=== PATIENT | male | born 1970 | race Caucasian/White ===

== ENCOUNTER 2021-09-08 19:03 | Emergency (ER) | payer OTHER ==
[2021-09-08] MEDS ORDERED: CYCLOBENZAPRINE10 MG PO (21:17)
[2021-09-08] MEDS ORDERED: TORADOL 10 MG T10 MG PO (21:17)
== END 2021-09-08 21:51 | disposition home or self-care (01) ==
LOC: ER1 19:03
DX: S20.212A Contusion of left front wall of thorax, initial encounter (principal); M54.2 Cervicalgia; I10 Essential (primary) hypertension; F17.210 Nicotine dependence, cigarettes, uncomplicated; Z88.5 Allergy status to narcotic agent; V89.2XXA Person injured in unspecified motor-vehicle accident, traffic, initial encounter
CPT/HCPCS: 70450; 72125; 72128; 96372; 99284; J1885